=== PATIENT | male | born 1970 | race Caucasian/White ===

== ENCOUNTER 2022-01-05 15:24 | Emergency (ER) | payer OTHER, SELFPAY ==
[2022-01-05 15:36] VITALS: BP 156/79; PULSE 112; RESP 14; TEMP 36.9; O2SAT 99
[2022-01-05 16:10] VITALS: BP 143/84; PULSE 112; RESP 18; O2SAT 99
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
[2022-01-05] MEDS: HYDROcodone/acetaminophen (*CRX) 5-325 MG TABLET 1 TAB PO (16:31)
[2022-01-05 17:15] VITALS: BP 136/85; PULSE 90; RESP 18; O2SAT 99
== END 2022-01-05 17:17 | disposition home or self-care (01) ==
LOC: ANHED 17:02
PROVIDERS: Emergency Provider Nurse Practitioner Family
DX: M95.11 Cauliflower ear, right ear (principal)
CPT/HCPCS: 99283; A9270

== ENCOUNTER 2024-09-17 11:44 | Emergency (ER) | payer SELFPAY ==
[2024-09-17] VITALS (8 sets, daily range): BP systolic 129–182; BP diastolic 72–98; PULSE 90–105; RESP 14–20; TEMP 36.6; O2SAT 94–99
--- NOTE | ~2024-09-17 | CT_ITS ---
EXAMINATION: CTA chest abdomen pelvis DATE: 09/17/2024 16:29 INDICATION: Chest and abdominal pain TECHNIQUE: Computed tomographic angiography (CTA) of the chest, abdomen, and pelvis was performed wit hout and with 100 mL Omnipaque-350 intravenous contrast. Volume-rendered 3D-reconstructions of the ao rta and large arteries were constructed by the technologist on a separate workstation. Automated expo sure control and iterative reconstruction technique were employed. The dose-length product was 1274.7 3 mGy-cm. COMPARISON: None FINDINGS: Chest: Mild dependent atelectasis in bilateral lower lobes. No suspicious pulmonary nodules, pneumonia, pulm onary edema, pleural effusion or pneumothorax. Heart size is normal. No pericardial effusion. Small a mount of atherosclerotic coronary artery calcific lesion. Thoracic aorta is normal in caliber with no dissection. There is good contrast opacification of the pulmonary arteries demonstrating no pulmonar y embolism. No pathologically enlarged thoracic lymphadenopathy. Mild thoracic and moderate lower cer vical spondylosis. Abdomen and pelvis: Diffuse hepatic steatosis. 1.6 cm avidly enhancing subcapsular lesion in the anterior left hepatic lo be which statistically most likely to represent a hemangioma. There is a second lesion with avid zan pheral discontiguous puddling of contrast in the right hepatic lobe measuring 1.6 cm also most consis tent with a hemangioma. Cholecystectomy clips the gallbladder fossa. Spleen, bilateral adrenal glands and kidneys are normal. Small dystrophic calcific a cyst at the head and tail of the pancreas consis tent with sequela of chronic pancreatitis. Bladder is normal. There is moderate diverticulosis with s igmoid colon predominance and without adjacent from trace stranding to suggest diverticulitis. No bow el obstruction. The appendix is not visualized. No pericecal inflammatory change to suggest acute stuart endicitis. There are moderate-sized bilateral fat-containing inguinal hernias. Midline infraumbilical surgical scar with surgical clips. No free intraperitoneal gas or fluid. No pathologically enlarged abdominal or pelvic lymphadenopathy. There is small amount of nonhemodynamically significant calcifie d atherosclerosis of the normal caliber abdominal aorta and bilateral iliac arteries. Mild lumbar spo ndylosis with instrumented L4-L5 anterior spinal fusion. IMPRESSION: 1. No acute cardiopulmonary disease or acute intra-abdominal/pelvic process. 2. Diffuse hepatic steatosis with a couple avidly enhancing hepatic lesions most likely representing hemangiomas but would recommend further evaluation with multiphase pre and postcontrast MRI for more definitive determination. 3. Diverticulosis. 4. Moderate-sized bilateral fat-containing inguinal hernias. Reviewed, dictated and finalized at location B. IMPRESSION: 1. No acute cardiopulmonary disease or acute intra-abdominal/pelvic process. 2. Diffuse hepatic steatosis with a couple avidly enhancing hepatic lesions mos t likely representing hemangiomas but would recommend further evaluation with m ultiphase pre and postcontrast MRI for more definitive determination. 3. Diverticulosis. 4. Moderate-sized bilateral fat-containing inguinal hernias.
--- NOTE | ~2024-09-17 | XR_ITS ---
EXAMINATION: XR chest 2V DATE: 09/17/2024 13:25 INDICATION: Chest pain TECHNIQUE: PA and lateral views of the chest were obtained. COMPARISON: None FINDINGS: The lungs are clear with no focal airspace opacities, pulmonary edema, pleural effusion or pneumothor ax. The cardiomediastinal silhouette is normal. A few old healed lateral right rib fractures. IMPRESSION: 1. No acute cardiopulmonary disease. Reviewed, dictated and finalized at location B.
--- NOTE | 2024-09-17 11:46 | ECG_ITS ---
Test Date: 2024-09-17 11:49:21 Measurements Intervals [place] Rate: 100 P: 71 MN: 168 QRS: -7 QRSD: 102 T: 63 QT: 351 QTc: 455 Interpretive Statements SINUS TACHYCARDIA CONSIDER ANTERIOR INFARCT, AGE INDETERMINATE BORDERLINE T WAVE ABNORMALITY- HIGH LATERAL LEADS ABNORMAL ECG No previous ECG available for comparison Electronically Signed On 09-17-2024 11:59:15 CDT by Connor Valenzuela D.O.
[2024-09-17 12:02] LABS: Glucose Point of Care 294 mg/dl (65-105)
[2024-09-17 12:11] LABS: Basophils Absolute Auto 0.1 K/mm3 (0.0-0.1); Basophils Percent Auto 0.6 % (0.2-1.2); Eosinophils Absolute Auto 0.1 K/mm3 (0-0.3); Eosinophils Percent Auto 0.8 % (0-4.4); Hematocrit 47.6 % (42.0-52.0); Hemoglobin 16.6 g/dL (14.0-18.0); Immature Granulocyte Absolute 0.08 K/mm3 (0.00-0.031); Immature Granulocyte Percent A 0.4 % (0-0.5); Lymphocytes Absolute Auto 1.83 K/mm3 (0.9-3.2); Lymphocytes Percent Auto 9.9 % (18.3-44.2); Mean Corpuscular HGB Conc 34.9 g/dl (32-36); Mean Corpuscular Hemoglobin 29.8 pg (26-34); Mean Corpuscular Volume 85.5 fl (80-100); Monocytes Absolute Auto 1.1 K/mm3 (0.1-0.6); Monocytes Percent Auto 5.8 % (2.6-8.5); Neutrophils Absolute Auto 15.2 K/mm3 (1.3-6.7); Neutrophils Percent Auto 82.5 % (45.5-73.1); Platelet Count Result 268 k/mm3 (150-375); Red Blood Count 5.57 M/mm3 (4.6-6.20); Red Cell Distribution Width 12.6 % (11.5-14.5); White Blood Count 18.5 K/mm3 (4.5-10.0)
[2024-09-17 12:21] LABS: INR 0.9; Prothrombin Time 12.1 Seconds (11.1-14.7)
[2024-09-17 12:22] LABS: Partial Thromboplastin Time 29.4 Seconds (22.3-36.8)
--- NOTE | 2024-09-17 13:35 | ED.GENADULT ---
HPI - General Adult General Chief complaint: Chest Pain Stated complaint: elevated BS, chest pain Time Seen by Provider: 09/17/24 13:11 History of Present Illness HPI narrative: 54-year-old male presents to the emergency department for evaluation for 2 days of left-sided chest pain and elevated blood sugars since yesterday. Patient is an insulin-dependent diabetic that is not on insulin pump. Patient states his blood sugars have been typically running in the 160s range but yesterday they were 300-400. Patient is a smoker but denies any prior cardiac history. Patient did have a stress test approximately 1 year ago at [facility]. Patient has no stents. Patient is a smoker but has no reported history of COPD. Related Data Allergies Allergy/AdvReac Type Severity Reaction Status Date / Time amoxicillin Allergy Hives Verified 01/05/22 15:41 Penicillins Allergy Hives Verified 01/05/22 15:41 Review of Systems Review of Systems: All systems reviewed & are unremarkable except as noted in HPI and below Exam Narrative: APPEARANCE: Well appearing, no pain, no distress, well-nourished. HEAD: normocephalic, atraumatic. EYES: PERRLA/EOMI, conjunctivae clear. NOSE: Normal no drainage EARS:TMS clear with good light reflex. THROAT: Pharynx clear, no exudate. NECK: Supple. No adenopathy, no masses. RESPIRATORY: Airway patent, respirations nonlabored. Clear to auscultation bilaterally, no rales, rhonchi, wheezing. CARDIOVASCULAR: Regular rate and rhythm without murmurs rubs or gallops. ABDOMINAL: Soft, nontender, nondistended, normal bowel sounds MUSCULOSKELETAL: Moves all extremities. Strength/ROM intact, No edema, No calf tenderness. NEURO: Alert. Cranial nerves II through XII intact. Good gait. Good coordination SKIN: Warm, dry. Normal Color Course Vital Signs Vital signs: Vital Signs Temperature 97.9 F 09/17/24 11:50 Pulse Rate 100 09/17/24 11:50 Respiratory Rate 20 09/17/24 11:50 Blood Pressure 129/72 09/17/24 11:50 Pulse Oximetry 96 09/17/24 11:50 Oxygen Delivery Room Air 09/17/24 11:50 Temperature 97.9 F 09/17/24 11:50 Pulse Rate 105 H 09/17/24 19:41 Respiratory Rate 16 09/17/24 19:41 Blood Pressure 182/98 H 09/17/24 19:41 Pulse Oximetry 99 09/17/24 19:41 Oxygen Delivery Room Air 09/17/24 11:50 Medical Decision Making MDM Narrative Medical decision making narrative: 54-year-old male presents emergency department for evaluation for intermittent chest pain and high blood sugars. Patient is currently afebrile with a leukocytosis of 18.5. Hemoglobin of 16.6. INR of 0.9. ABG was with then normal limits. No significant abnormalities on the patient's CMP patient's repeat blood sugar was 114 after rehydration. No elevation of lipase. Patient had negative serial troponins. UA was positive for ketones but negative for infection. Patient was negative for influenza RSV and for COVID. CT chest abdomen pelvis was ordered due to the patient complaining of chest and abdominal pain. This showed no acute abnormalities. Patient's blood pressure was 160/86 at time of discharge but patient had not yet taken his evening metoprolol. This was given prior to discharge. Patient was updated results of the workup and plan for close follow-up with primary care physician. All questions concerns were addressed Differential Diagnosis Differential Diagnosis: DKA, dehydration, hyperglycemia, COVID, RSV, influenza, ACS, pulmonary embolism, aortic dissection, STEMI, NSTEMI Vital Signs Vital Signs: Vital Signs Temperature 97.9 F 09/17/24 11:50 Pulse Rate 100 09/17/24 11:50 Respiratory Rate 20 09/17/24 11:50 Blood Pressure 129/72 09/17/24 11:50 Pulse Oximetry 96 09/17/24 11:50 Oxygen Delivery Room Air 09/17/24 11:50 Temperature 97.9 F 09/17/24 11:50 Pulse Rate 105 H 09/17/24 19:41 Respiratory Rate 16 09/17/24 19:41 Blood Pressure 182/98 H 09/17/24 19:41 Pulse Oximetry 99 09/17/24 19:41 Oxygen Delivery Room Air 09/17/24 11:50 Lab Data Lab results reviewed: Yes I reviewed the patient's lab results. 09/17/24 11:59 09/17/24 15:43 Labs: Lab Results 09/17/24 09/17/24 09/17/24 Range/Units 11:55 11:59 13:32 WBC 18.5 H (4.5-10.0) K/mm3 RBC 5.57 (4.6-6.20) M/mm3 Hgb 16.6 (14.0-18.0) g/dL Hct 47.6 (42.0-52.0) % MCV 85.5 (80-100) fl MCH 29.8 (26-34) pg MCHC 34.9 (32-36) g/dl RDW 12.6 (11.5-14.5) % Plt Count 268 (150-375) k/mm3 MPV 11.0 H (7.4-10.4) fl Immature Gran % (Auto) 0.4 (0-0.5) % Neut % (Auto) 82.5 H (45.5-73.1) % Lymph % (Auto) 9.9 L (18.3-44.2) % [place] % (Auto) 5.8 (2.6-8.5) % Eos % (Auto) 0.8 (0-4.4) % Baso % (Auto) 0.6 (0.2-1.2) % Lymph # (Auto) 1.83 (0.9-3.2) K/mm3 [place] # (Auto) 1.1 H (0.1-0.6) K/mm3 Eos # (Auto) 0.1 (0-0.3) K/mm3 Baso # (Auto) 0.1 (0.0-0.1) K/mm3 Abs Immat Gran (auto) 0.08 H (0.00-0.031) K/mm3 Absolute Neuts (auto) 15.2 H (1.3-6.7) K/mm3 Absolute Nucleated RBC 0.000 (0.0-0.012) K/mm3 Nucleated RBC % 0.0 (0.0-0.2) % PT 12.1 (11.1-14.7) Seconds INR 0.9 APTT 29.4 (22.3-36.8) Seconds Methemoglobin 0.2 (0-1.5) %THb Sodium (137-145) mmol/L Potassium (3.4-5.0) mmol/L Chloride (98-107) mmol/L Carbon Dioxide (22-30) mmol/L Anion Gap (4-12) mmol/L BUN (9-20) mg/dL Creatinine (0.7-1.3) mg/dL Estim Creat Clear Calc ml/min Estimated GFR (59 - ) Glucose (65-110) mg/dL POC Capillary Glucose 294 H (65-105) mg/dl Calcium (8.4-10.2) mg/dL Total Bilirubin (0.2-1.3) mg/dL AST (17-59) U/L ALT (6-50) U/L Alkaline Phosphatase (38-126) U/L Troponin I (0.000-0.034) ng/mL Total Protein (6.3-8.2) g/dL Albumin (3.5-5.1) g/dL Lipase (23-300) U/L Urine Color (Yellow) Urine Appearance (Clear) Urine pH (5.0-9.0) Ur Specific [place] (1.001-1.035) Urine Protein (Negative) mg/dL Urine Glucose (UA) (Negative) mg/dL Urine Ketones (Negative) mg/dL Ur Blood (Man) (Negative) Urine Nitrate (Negative) Urine Bilirubin (Negative) Urine Urobilinogen (<2.0) mg/dL Add Ur Microanalysis Leukocyte Esterase Rfl (Negative) SHAUNNA/UL Urine RBC (0-2) /hpf Urine WBC (0-3) /hpf Ur Squamous Epith Cells (Few) /hpf Urine Bacteria /hpf Urine Casts Influenza A (RT-PCR) (Negative) Influenza B (RT-PCR) (Negative) RSV (RT-PCR) (Negative) SARS-CoV-2 RNA (RT-PCR) (Negative) 09/17/24 09/17/24 09/17/24 Range/Units 13:41 14:20 15:41 WBC (4.5-10.0) K/mm3 RBC (4.6-6.20) M/mm3 Hgb (14.0-18.0) g/dL Hct (42.0-52.0) % MCV (80-100) fl MCH (26-34) pg MCHC (32-36) g/dl RDW (11.5-14.5) % Plt Count (150-375) k/mm3 MPV (7.4-10.4) fl Immature Gran % (Auto) (0-0.5) % Neut % (Auto) (45.5-73.1) % Lymph % (Auto) (18.3-44.2) % [place] % (Auto) (2.6-8.5) % Eos % (Auto) (0-4.4) % Baso % (Auto) (0.2-1.2) % Lymph # (Auto) (0.9-3.2) K/mm3 [place] # (Auto) (0.1-0.6) K/mm3 Eos # (Auto) (0-0.3) K/mm3 Baso # (Auto) (0.0-0.1) K/mm3 Abs Immat Gran (auto) (0.00-0.031) K/mm3 Absolute Neuts (auto) (1.3-6.7) K/mm3 Absolute Nucleated RBC (0.0-0.012) K/mm3 Nucleated RBC % (0.0-0.2) % PT (11.1-14.7) Seconds INR APTT (22.3-36.8) Seconds Methemoglobin (0-1.5) %THb Sodium (137-145) mmol/L Potassium (3.4-5.0) mmol/L Chloride (98-107) mmol/L Carbon Dioxide (22-30) mmol/L Anion Gap (4-12) mmol/L BUN (9-20) mg/dL Creatinine (0.7-1.3) mg/dL Estim Creat Clear Calc ml/min Estimated GFR (59 - ) Glucose (65-110) mg/dL POC Capillary Glucose 190 H (65-105) mg/dl Calcium (8.4-10.2) mg/dL Total Bilirubin (0.2-1.3) mg/dL AST (17-59) U/L ALT (6-50) U/L Alkaline Phosphatase (38-126) U/L Troponin I (0.000-0.034) ng/mL Total Protein (6.3-8.2) g/dL Albumin (3.5-5.1) g/dL Lipase (23-300) U/L Urine Color Yellow (Yellow) Urine Appearance Clear (Clear) Urine pH 6.0 (5.0-9.0) Ur Specific [place] 1.041 H (1.001-1.035) Urine Protein 1+ H (Negative) mg/dL Urine Glucose (UA) 3+ H (Negative) mg/dL Urine Ketones 2+ H (Negative) mg/dL Ur Blood (Man) Negative (Negative) Urine Nitrate Negative (Negative) Urine Bilirubin Negative (Negative) Urine Urobilinogen 0.2 (<2.0) mg/dL Add Ur Microanalysis Reviewed Leukocyte Esterase Rfl Negative (Negative) SHAUNNA/UL Urine RBC 0-2 (0-2) /hpf Urine WBC 0-5 (0-3) /hpf Ur Squamous Epith Cells None seen (Few) /hpf Urine Bacteria None seen /hpf Urine Casts 0-2 Influenza A (RT-PCR) Negative (Negative) Influenza B (RT-PCR) Negative (Negative) RSV (RT-PCR) Negative (Negative) SARS-CoV-2 RNA (RT-PCR) Negative (Negative) 09/17/24 09/17/24 09/17/24 Range/Units 15:43 18:38 19:31 WBC (4.5-10.0) K/mm3 RBC (4.6-6.20) M/mm3 Hgb (14.0-18.0) g/dL Hct (42.0-52.0) % MCV (80-100) fl MCH (26-34) pg MCHC (32-36) g/dl RDW (11.5-14.5) % Plt Count (150-375) k/mm3 MPV (7.4-10.4) fl Immature Gran % (Auto) (0-0.5) % Neut % (Auto) (45.5-73.1) % Lymph % (Auto) (18.3-44.2) % [place] % (Auto) (2.6-8.5) % Eos % (Auto) (0-4.4) % Baso % (Auto) (0.2-1.2) % Lymph # (Auto) (0.9-3.2) K/mm3 [place] # (Auto) (0.1-0.6) K/mm3 Eos # (Auto) (0-0.3) K/mm3 Baso # (Auto) (0.0-0.1) K/mm3 Abs Immat Gran (auto) (0.00-0.031) K/mm3 Absolute Neuts (auto) (1.3-6.7) K/mm3 Absolute Nucleated RBC (0.0-0.012) K/mm3 Nucleated RBC % (0.0-0.2) % PT (11.1-14.7) Seconds INR APTT (22.3-36.8) Seconds Methemoglobin (0-1.5) %THb Sodium 134 L (137-145) mmol/L Potassium 4.1 (3.4-5.0) mmol/L Chloride 102 (98-107) mmol/L Carbon Dioxide 22 (22-30) mmol/L Anion Gap 10 (4-12) mmol/L BUN 14 (9-20) mg/dL Creatinine 0.70 (0.7-1.3) mg/dL Estim Creat Clear Calc 124 ml/min Estimated GFR > 60 (59 - ) Glucose 187 H (65-110) mg/dL POC Capillary Glucose 114 H (65-105) mg/dl Calcium 8.4 (8.4-10.2) mg/dL Total Bilirubin 0.8 (0.2-1.3) mg/dL AST 25 (17-59) U/L ALT 24 (6-50) U/L Alkaline Phosphatase 75 (38-126) U/L Troponin I 0.014 0.015 (0.000-0.034) ng/mL Total Protein 8.0 (6.3-8.2) g/dL Albumin 3.6 (3.5-5.1) g/dL Lipase 86 (23-300) U/L Urine Color (Yellow) Urine Appearance (Clear) Urine pH (5.0-9.0) Ur Specific [place] (1.001-1.035) Urine Protein (Negative) mg/dL Urine Glucose (UA) (Negative) mg/dL Urine Ketones (Negative) mg/dL Ur Blood (Man) (Negative) Urine Nitrate (Negative) Urine Bilirubin (Negative) Urine Urobilinogen (<2.0) mg/dL Add Ur Microanalysis Leukocyte Esterase Rfl (Negative) SHAUNNA/UL Urine RBC (0-2) /hpf Urine WBC (0-3) /hpf Ur Squamous Epith Cells (Few) /hpf Urine Bacteria /hpf Urine Casts Influenza A (RT-PCR) (Negative) Influenza B (RT-PCR) (Negative) RSV (RT-PCR) (Negative) SARS-CoV-2 RNA (RT-PCR) (Negative) ABG Data ABG results: 09/17/24 13:32 Puncture Site Right radial ABG pH 7.425 ABG pCO2 33.8 L ABG pO2 74.5 L ABG PO2/FiO2 Ratio 3.55 ABG HCO3 21.7 L ABG O2 Saturation 95.4 ABG O2 Content 21.1 ABG Base Excess -1.8 A-a Gradient 34.8 Oxyhemoglobin 92.5 Carboxyhemoglobin 3.4 H Reduced Hemoglobin 3.9 Total Hemoglobin 16.2 O2 Delivery Device Not Reportable O2 Liters/Min Not Reportable FiO2 21 Imaging Data Radiologist's impression: Impressions Chest X-Ray 09/17/24 13:31 IMPRESSION: 1. No acute cardiopulmonary disease. Chest/Abdomen/Pelvis CTA 09/17/24 16:39 IMPRESSION: 1. No acute cardiopulmonary disease or acute intra-abdominal/pelvic process. 2. Diffuse hepatic steatosis with a couple avidly enhancing hepatic lesions most likely representing hemangiomas but would recommend further evaluation with multiphase pre and postcontrast MRI for more definitive determination. 3. Diverticulosis. 4. Moderate-sized bilateral fat-containing inguinal hernias. Discharge Plan Discharge Clinical Impression: Chest pain, Acute hyperglycemia Patient Disposition: Home Condition: Stable Instructions: Antibiotic Form, Chest Pain (ED) Additional Instructions: Closely monitor your blood sugar and drink plenty of water. Follow a diabetic diet. Have close follow-up with a primary care physician and with cardiology. Worsening symptoms then please call or return to the emergency department. You will need additional outpatient cardiac testing, such as a stress test. Patient Language: Brazilian Prescriptions: No Action hydrocodone-acetaminophen 5-325 mg tablet 1 tablet PO Q6H PRN (Reason: pain) Qty: 14 0RF Follow-up/Referrals: Chiqui Stuart MD [Physician] - PHYSICIAN NOT ON STAFF,NONSTAFF [Non-Staff] - Quality HEART score for chest pain patients History: slightly suspicious ECG: normal Age: > 45 and < 65 years Risk factors: 1 or 2 risk factors Troponin: < or = to 1x normal limit Heart score: 2
--- OUTSIDE RECORDS SUMMARY | 2024-09-17 13:40 | XMS_ITS | Clinical Summary ---
Author Organization [facility] Address [address] [place] [address] Care Team Providers Care Multisensor Intelligence Officer Name Role Phone Zoran Menard MD Primary Care Provider Allergies Active Allergy Reactions Criticality Noted Date Comments Amoxicillin Itching Low 02/03/2021 Codeine Unknown,Other (See comments) Low 012 Penicillins Hives,Itching,Rash,O ther (See comments) Medium 03/10/2015 Medications atorvastatin (LIPITOR) 40 mg tablet Take 1 tablet (40 mg total) by mouth daily 1 Active mirtazapine (REMERON) 15 mg tablet Take 1 tablet (15 mg total) by mouth nightly 1 Active sertraline (ZOLOFT) 50 mg tablet Take 1 tablet (50 mg total) by mouth daily 1 Active Jardiance 25 mg tablet 1 Active sulfamethoxazole -trimethoprim (BACTRIM DS) 800-160 mg per tablet 1 Active nystatin cream 1 Active fenofibrate (FENOGLIDE) 40 mg tablet Take 1 tablet (40 mg total) by mouth daily 1 Active lisinopriL (PRINIVIL,ZESTRI L) 10 mg tablet Take 1 tablet (10 mg total) by mouth daily 2 Active metFORMIN XR (GLUCOPHAGE XR) 500 mg 24 hr tablet TAKE 2 TABLETS BY MOUTH TWICE A DAY FOR 90 DAYS 2 Active glimepiride (AMARYL) 2 mg tablet glimepiride 2 mg tablet Take 1 tablet(s) every day by oral route. Active pregabalin (LYRICA) 75 mg capsule Take 1 capsule (75 mg total) by mouth 2 (two) times a day 2 Active amLODIPine (NORVASC) 5 mg tabletIndication s:Essential hypertension TAKE 1 TABLET (5 MG TOTAL) BY MOUTH DAILY. 90 tablet 3 4 Active OneTouch Ultra Test strip USE TO TEST BLOOD SUGAR ONCE IN THE MORNING FASTING AND BEFORE BED 3 Active LANTUS 100 unit/mL (3 mL) pen for injection INJECT 30 UNITS EVERY DAY BY SUBCUTANEOUS ROUTE IN THE EVENING FOR 30 DAYS. Active nicotine (NICODERM CQ) 21 mg APPLY 1 PATCH EVERY DAY Active TRUEplus Pen Needle 31 gauge x 5/16 needle USE TO INJECT LANTUS DAILY 3 Active Alcohol Prep Pads pads, medicated 3 Active meloxicam (MOBIC) 15 mg tablet Take 1 tablet (15 mg total) by mouth daily with breakfast Take 1 daily with food 30 tablet 4 Active cyclobenzaprine (FLEXERIL) 10 mg tablet Take 1 tablet (10 mg total) by mouth nightly as needed for muscle spasms 20 tablet 4 Active metoprolol tartrate (LOPRESSOR) 50 mg immediate release tablet TAKE 1 TABLET BY MOUTH TWICE A DAY 60 tablet 1 4 Active Active Problems Problem Noted Date Diagnosed Date Contusion of multiple sites 06/07/2023 Diabetes mellitus 06/07/2023 Hypertensive disorder 06/07/2023 Essential hypertension 06/07/2023 Hernia of anterior abdominal wall 06/07/2023 Dyslipidemia 02/12/2022 Overview (02/12/2022): Added automatically from request for surgery [id number] Abnormal computed tomography angiography (CTA) 0 02/12/2022 Overview (02/12/2022): Added automatically from request for surgery [id number] High coronary artery calcium score 02/12/2022 Overview (02/12/2022): Added automatically from request for surgery [id number] Smoking 02/12/2022 Overview (02/12/2022): Added automatically from request for surgery [id number] Mixed hyperlipidemia 02/12/2022 Overview (02/12/2022): Added automatically from request for surgery [id number] Family history of CABG 02/12/2022 Overview (02/12/2022): Added automatically from request for surgery [id number] Hypertriglyceridemia 02/12/2022 Overview (02/12/2022): Added automatically from request for surgery [id number] Coronary artery disease of n ative artery of [place] heart with stable angina pectoris 02/12/2022 Overview (02/12/2022): Added automatically from request for surgery [id number] Dyspnea on exertion 02/12/2022 Overview (02/12/2022): Added automatically from request for surgery [id number] Anginal equivalent 02/12/2022 Overview (02/12/2022): Added automatically from request for surgery [id number] Hypertriglyceridemia 04/30/2021 Hemangioma of liver 03/29/2021 Overview (06/07/2023): MRI 03/27/21: Benign cavernous hemangiomas of liver x 2 1.3 x 0.9 cm 1.3 x 1.1 cm Polyp of colon 03/10/2021 Overview (06/07/2023): Benign pathology 03/10/21. Repeat recommended Feb 2024. Pancreatitis 11/29/2019 Ulcer of right great toe due to diabetes mellitu s 12/25/2017 Sepsis 12/24/2017 Anxiety 07/08/2016 Dorsalgia 11/14/2015 Right rotator cuff tear 08/20/2015 Cervicalgia 07/30/2015 Other chronic pain 07/30/2015 Complete tear of right rotator cuff 06/18/2015 Low back pain 06/08/2015 Closed fracture of lumbar vertebra 04/15/2015 Contusion of one lung 03/11/2015 Diverticulosis of large inte jose m without perforation or abscess without bleeding 03/11/2015 Hemangioma of intra-abdominal structures 015 Diabetic neuropathy 01/08/2015 Cervical disc disorder 03/09/2012 Depressive disorder 03/09/2012 Backache 03/09/2012 Surgical History Surgery Date Site/Laterality Comments LAPAROSCOPIC CHOLECYSTECTOMY BACK SURGERY L4-L5 Fusion APPENDECTOMY ANKLE SURGERY Left KNEE SURGERY Right x2 Medical History Medical History Date Comments Diabetes (HCC) Anxiety Depressive disorder Chronic pain Neuropathy Hypertension Family History Medical History Relation Name Comments Diabetes Father Heart disease Father Hypertension Father Diabetes Mother Hypertension Mother Thyroid cancer Mother Relation Name Status Comments Father Mother Alive Social History Tobacco Use Types Packs/Day Years Used Date Smoking Tobacco: Every Day Cigarettes 1 30.5 Started: 03/31/1994 Smokeless Tobacco: Former Quit: 02/09/2021 Tobacco Cessation:Ready to Q uit: Not Asked; Counseling Given: Not Answered AUDIT-C Answer Date Recorded Q1: How often do you have a drink containing alc ohol? Monthly or less 03/01/2022 Q2: How many drinks containi ng alcohol do you have on a typical day when you are drinking? 5 or 6 03/01/2022 Q3: How often do you have si x or more drinks on one occasion? Less than monthly 03/01/2022 Personal Safety Answer Date Recorded Getting School Help Needed Not on file 05/05 Sex and Gender Information Value Date Recorded Sex Assigned at Not on file Legal Sex Male 11:29 PM HADOOP ANALYST Gender Identity Not on file Sexual Orientation Not on file Obstetrics History Last Filed Vital Signs Vital Sign Reading Time Taken Comments Blood Pressure 130/80 05/10/2022 10:50 AM HADOOP ANALYST Pulse 95 05/10/2022 10:50 AM HADOOP ANALYST Temperature 36.8 C (98.2 F) 03/01/2022 5:00 PM CDT Respiratory Rate 18 03/01/2022 6:30 PM CDT Oxygen Saturation 97% 05/10/2022 10:50 AM HADOOP ANALYST Inhaled Oxygen Concentration - - Weight 106.6 kg (235 lb) 06/15/2023 8:08 AM HADOOP ANALYST Height 188 cm (6' 2 ) 06/15/2023 8:08 AM HADOOP ANALYST Body Mass Index 30.17 06/15/2023 8:08 AM HADOOP ANALYST Plan of Treatment Health Maintenance Due Date Last Done Comments Albumin Creatinine Ratio, Urine 1972 Colon Cancer Screening-Colonoscopy 1972 Depression Screening 1972 Hepatitis C Screening 1972 Prostate Cancer Screening-PSA 1972 Dilated Eye Exam 1972 Foot Exam 1972 Hepatitis B Screening 1990 Regular Well Visit/Exam 18-64 1990 Pneumococcal vaccine <65 (2 of 2 - PCV) 08/26/2016 0 08/27/2015 Hemoglobin A1C 06/28/2018 12/26/2017 Lipid Panel 12/01/2020 12/02/2019 Zoster Vaccine (1 of 2) 2022 eGFR 03/01/2023 03/01/2022, 02/03/2021 Influenza Vaccine (Season Ended) 2025 02/15/20 23 DTaP/Tdap/Td Vaccine (2 - Td or Tdap) 12/29/203112/2021 Procedures Procedure Name Priority Date/Time Associated Diagnosis Comments EGFR STAT 03/01/2022 11:32 AM CDT from Last 3 Months or Most Recently Relevant to Health Maintenance Results * eGFR (03/01/2022 11:32 AM CDT) eGFR 113 mL/min/1. 73 m2 CHATO NAVARRETE Comment: Interpretive Data Reference Interval Normal >/= 90 mL/min/1.73m2 Mildly decreased* 60 - 89 mL/min/1.73m2 Mildly to moderately decreased 45 - 59 mL/min/1.73m2 Moderately to severely decreased 30 - 44 mL/min/1.73m2 Severely decreased 15 - 29 mL/min/1.73m2 Kidney Failure < 15 mL/min/1.73m2 *Relative to young adult level Estimated glomerular filtration rate is determined by the 2020 CKD-EPI equation recommended by the National Kidney Foundation (A Unifying Approach to GFR Estimation: Recommendations of the NKF-ASK Task Force on Reassessing the Inclusion of Race in Diagnosing Kidney Disease, JASN 2020). The CKD-EPI equation should not be used for patients with unstable renal function and has not been validated in children and those over 70. Current interpretive data was last reviewed 2021. Blood 03/01/2022 11:3 2 AM CDT 03/01/2022 11:35 AM CDT Mahi Aviles MD LAB BLOOD ORDERABLES F inal Result [facility] [address] [facility] Department [place] [address] from Last 3 Months or Most Recently Relevant to Health Maintenance [place] Care Teams Multisensor Intelligence Officer Relationship Specialty Start Date End Date Zoran Menard MD PCP - General Family Medicine 05/10/23
--- OUTSIDE RECORDS SUMMARY | 2024-09-17 13:40 | XMS_ITS | Continuity of Care Document ---
Author Organization [facility] Address [address] [place] [address] Phone Care Team Providers Care Kier Tender Name Role Phone Richard Gracia MD Unavailable Unavailabl e Allergies, Adverse Reactions, Alerts Substance Reaction Status Criticality amoxicillin Active No Information Penicillins Active No Information Medications Medication Instructions Dosage Effective Dates (start - stop) Status Comments Celebrex 200 mg capsule take 1 capsule by oral route every day as needed 200 MG - Active ESCITALOPRAM OXALATE (unknown strength) Not Available - Active GABAPENTIN (unknown strength) Not Available - Active GLIPIZIDE (unknown strength) Not Available - Active HYDROCODONE-ACETAMIN OPHEN (unknown strength) Not Available - Active LISINOPRIL (unknown strength) Not Available - Active METFORMIN HCL (unknown strength) Not Available - Active MIRTAZAPINE (unknown strength) Not Available - Active SIMVASTATIN (unknown strength) Not Available - Active Procedures Procedure Date OFFICE/OUTPATIENT VISIT EST OFFICE/OUTPATIENT VISIT EST OFFICE/OUTPATIENT VISIT EST OFFICE/OUTPATIENT VISIT EST OFFICE/OUTPATIENT VISIT EST RADEX SPI LUMBOSAC 2/3 VIEWS X-RAY EXAM HIP UNI W PELVIS 1 VIEW OFFICE CONSULTATION Advance Directives Directive Yes / No Effective Date File Name No Information Encounters Encounter Description Practice Location Reason(s) For Visit Diagnoses Date Provider Providers Copied on Encounter [facility], [address], [place], [address], [place] tel:[phone] [facility] No Information Jul-0 8-201 7 Julius Ramos. [address] [place], [place], [id number] . tel: [phone] [facility], [address] [address], [place], [address], [place] tel:[phone] [facility] No Information 6-201 7 [address] [place]. [address], [place], [place], [id number] . tel: [phone] OFFICE/OUTPAT IENT VISIT EST [facility], [address] [address], [place], [address], [place] tel:[phone] [facility] Primary osteoarthritis of right hip Sep-2 9-201 6 [place] [place]. [address] , [place], [place], [id number] . tel: [phone] OFFICE/OUTPAT IENT VISIT EST [facility], [address], [address], [place] tel:[phone] [facility] Primary osteoarthritis of right hip Sep-0 2-201 6 [place]. [address] , [place], [place], [id number] . tel: [phone] OFFICE/OUTPAT IENT VISIT EST [facility], [address] [address], [place], [address], [place] tel:[phone] [facility] Primary osteoarthritis of right hip Aug-0 5-201 6 [place]. [address] , [place], [place], [id number] . tel: [phone] OFFICE/OUTPAT IENT VISIT EST [facility], [address] [address], [place], [address], [place] tel:[phone] [facility] The injection helped for three days (chief complaint) Body mass index (BMI) 31.0-31.9, adultPersonal history of nicotine dependencePrimar y osteoarthritis of right hip [address]. [address] , [place], [place], [id number] . tel: [phone] OFFICE/OUTPAT IENT VISIT EST [facility], [address] [facility] [address] [facility], [place], [address], [place] tel:[phone] [facility] Right hip pain (chief complaint) Primary osteoarthritis of right hip 6 Meliton Millan. [address] [facility] [address] [place], [place], [id number] . tel: [phone] Referring Provider: Levi Lopez, [address] [facility], [place], [address]. tel:[phone] OFFICE CONSULTATION [facility], [address], [place], [address], [place] tel:[phone] [facility] My back and right leg hurt alot (chief complaint) Body mass index (BMI) 31.0-31.9, adultPersonal history of nicotine dependenceLow back painPrimary osteoarthritis of right hip 6 John Sims. [address] [place], [place], [id number] . tel: [phone] Family History Family Member Type Diagnosis Age At Onset Mother Problem (finding) Maternal history of regina betes mellitus Father Problem (finding) Maternal history of regina betes mellitus Mother Problem (finding) hypertension Father Problem (finding) hypertension Payers Payer name Insurance type Covered republican ID Authoriza tion(s) No Information Social History Type Description Quantity Date Captured Comments Alcohol Use Details Unknown Caffeine Use Details Unknown Tobacco Use Status Smoking Status No Information Sex Male Chief Complaint And Reason For Visit No Information Reason For Referral Reason For Referral No Information Plan Of Treatment Date Type Action Status Goal Tobacco cessation counseling completed Goal Tobacco cessation counseling completed Referral Ordered: RADEX HIP ARTHG RS&I RT hip ordered Referral Ordered: RADEX SPI LUMBOSAC 2/3 VIEWS ordered Referral Ordered: RADEX PELVIS 1/2 VIEWS RT ordered Referral Ordered: X-RAY EXAM HIP UNI W PELVIS 1 VIEW RT ordered Referral Ordered: INJECTION RT hip Appointment date/timeframe: 11/26/2015 ordered History Of Present Illness Encounter Date Complaint History Of Prese nt Illness The injection helped for three d ays Right hip pain My back and right leg hurt alot Functional Status Date Functional Assessmen t No Information Instructions Date Instruction Additional Infor kayla Home exercise program. Related t o Primary osteoarthritis of right hip Home exercise program. Related t o Primary osteoarthritis of right hip Home exercise program. Related t o Primary osteoarthritis of right hip In terms of work, I will place him on light duty work restrictions- No bending, pulling, pushing, stooping, no lifting heavier than 10 pounds, no overhead lifting. Related to Primary osteoarthritis of right hip Dietary needs education Related to Body mass index (BMI) 31.0-31.9, adult Dietary needs education Related to Body mass index (BMI) 31.0-31.9, adult Assessments Type Assessment Date No Information Patient Care Teams Name Effective Dates (start - stop) Status Members No Information
--- OUTSIDE RECORDS SUMMARY | 2024-09-17 13:40 | XMS_ITS | Clinical Summary ---
Author Organization [facility] Address [address] [place] [address] Care Team Providers Care Fabric Worker Foreman Name Role Phone Sammi Lake MD Primary Care Provider [phone] Source Comments [facility],non-owned Affiliates and Associated Physician Practices is amultiple site organization consisting of ambulatory clinics and hospital sitesin [place], [place], [place] and [place]. This disclosure is being madepursuant to the Care Everywhere program and may not contain all information available regarding this patient. Last updated 18.[facility] [employer] Allergies Active Allergy Reactions Criticality Noted Date Comments Amoxicillin Rash Medium 03/10/2015 Penicillins Rash Medium 03/10/2015 Medications * Be aware that medications may not be up to date on this document. Alwaysverify current medications with the patient. meloxicam (MOBIC) 15 MG tablet 1 01/23/2016 Active glipiZIDE (GLUCOTROL) 5 MG tablet 1 11/03/2015 Active sertraline (ZOLOFT) 50 MG tablet Take 50 mg by mouth DAILY. 0 11/13/2015 Active mirtazapine (REMERON) 15 MG tablet Take 15 mg by mouth at bedtime Active lisinopril (PRINIVIL; ZESTRIL) 40 MG tablet Take 40 mg by mouth once daily Active metFORMIN (GLUCOPHAGE) 850 MG tablet Take 850 mg by mouth 3 times daily with meals Active alogliptin (NESINA) 25 MG tablet Take 25 mg by mouth once daily Active chlorthalidone (HYGROTON) 25 MG tablet Take 25 mg by mouth once daily Active amLODIPine (NORVASC) 10 MG tablet Take 1 tablet by mouth once daily 30 tablet 1 12/30/2017 Active pantoprazole EC (PROTONIX) 40 MG tablet Take 1 tablet by mouth 2 times daily 60 tablet 1 12/29/2017 Active HYDROcodone-aries taminophen (Medina) 5-325 MG tablet Take 1 (one) tablet by mouth every 6 hours as needed for Pain 12 tablet 12/28/2021 Active naproxen (Naprosyn) 500 MG tablet Take 1 (one) tablet by mouth 2 times daily 30 tablet 12/28/2021 Active Active Problems Problem Noted Date Diagnosed Date Ulcer of right great toe due to diabetes mellitu s 12/25/2017 Sepsis 12/24/2017 Dorsalgia 11/14/2015 Right rotator cuff tear 08/20/2015 Cervicalgia 07/30/2015 Other chronic pain 07/30/2015 Complete tear of right rotator cuff 06/18/2015 Low back pain 06/08/2015 Fracture of lumbar vertebra with routine healing 04/22/2015 Closed fracture of lumbar vertebra 04/15/2015 Diverticulosis of large inte jose m without perforation or abscess without bleeding 03/11/2015 Hemangioma of intra-abdominal structures 015 Contusion of one lung 03/11/2015 Immunizations Immunization Administration Dates Next Due TDAP (7yrs+) 12/28/2021 Family History Medical History Relation Name Comments None Known Brother Status: Alive Diabetes Father Status: d Hypertension Father Hypertension Mother Status: Alive None Known Sister 1 Status: Alive None Known Sister 2 Status: Alive Relation Name Status Comments Brother Father Mother Sister 1 Sister 2 Social History Tobacco Use Types Packs/Day Years Used Date Smoking Tobacco: Every Day Cigarettes Smokeless Tobacco: Never Tobacco Cessation:Ready to Q uit: No; Counseling Given: No Alcohol Use Standard Drinks/Week Comments No 0 (1 standard drink = 0.6 oz pur e alcohol) Sex and Gender Information Value Date Recorded Sex Assigned at Not on file Legal Sex Male 5:49 PM ATV MECHANIC Gender Identity Not on file Sexual Orientation Not on file Last Filed Vital Signs Vital Sign Reading Time Taken Comments Blood Pressure 143/90 01/05/2022 2:01 PM CDT Pulse 114 01/05/2022 2:01 PM CDT Temperature 36.4 C (97.6 F) 01/05/2022 2:01 PM CDT Respiratory Rate 18 12/28/2021 6:45 AM CDT Oxygen Saturation 100% 01/05/2022 2:01 PM CDT Inhaled Oxygen Concentration - - Weight 108.4 kg (239 lb) 01/05/2022 2:01 PM CDT Height 188 cm (6' 2 ) 01/05/2022 2:01 PM CDT Body Mass Index 30.69 01/05/2022 2:01 PM CDT Plan of Treatment Health Maintenance Due Date Last Done Comments COLOGUARD (AGES 45-75) - COLON CA SCREENING 1972 COLON MONITORING 1972 COLONOSCOPY - COLON CA SCREENING 1972 CT COLONOGRAPHY - COLON CA SCREENING 1972 Colorectal Cancer Screening 1972 FIT - COLON CA SCREENING 1972 FLEX SIG - COLON CA SCREENING 1972 HIV SCREENING 1987 HEPATITIS C SCREENING 04/24/1990 HEPATITIS B VACCINE (1 of 3 - 19+ 3-dose series) 1991 PNEUMOCOCCAL VACCINE 50+ (1 of 2 - PCV) 1991 DIABETES-STATIN 2012 DIABETES RETINOPATHY SCREENING 01/05/2022 DIABETES-FOOT EXAM WITH MONOFILAMENT 01/05/2022 DIABETES-HGB A1C 01/05/2022 12/26/2017 ZOSTER VACCINE (1 of 2) 2022 DIABETES-SERUM CREATININE 11/04/20232022, 11/03/2022, 12/28/2021, Additional history exists COVID-19 VACCINE (1 - season) 2024 DEPRESSION SCREENING 05/23/2024 DIABETES - URINE PROTEIN SCREENING 05/23/2024 INFLUENZA VACCINE (Season Ended) 2025 02/14/2023 DTAP/TDAP/TD VACCINES (2 - Td or Tdap) 12/29/2031 12/28/2021 HIB VACCINE Aged Out No longer eligi ble based on patient's age to complete this topic HPV VACCINE Aged Out No longer eligi ble based on patient's age to complete this topic MENINGOCOCCAL (Group B) VACCINE SHARED DECISION-MAKING Aged Out No longer eligible based on patient's age to complete this topic MENINGOCOCCAL GROUPS A/C/Y/W VACCINE Aged Out No longer eligible based on patient's age to complete this topic Procedures Procedure Name Priority Date/Time Associated Diagnosis Comments BASIC METABOLIC PANEL (CALCIUM TOTAL) STAT 12/28/2021 12:39 AM CDT HEMOGLOBIN A1C Routine 12/26/2017 3:18 AM CDT from Last 3 Months or Most Recently Relevant to Health Maintenance Results * (ABNORMAL) BASIC METABOLIC PANEL (CALCIUM TOTAL) (12/28/2021 12:39 AM CDT) BUN 16 7 - 26 mg/dL 12/28/2021 1:17 AM [facility] Creatinine 1.01 0.71 - 1.16 mg/dL 12/28/2021 1:17 AM [facility] Sodium 137 136 - 145 mmol/L 12/28/2021 1:17 AM [facility] Potassium 3.6 3.5 - 4.5 mmol/L 12/28/2021 1:17 AM [facility] Chloride 105 98 - 107 mmol/L 12/28/2021 1:17 AM [facility] CO2 17(L) 22 - 29 mmol/L 12/28/2021 1:17 AM [facility] Glucose 169(H) 70 - 115 mg/dL 12/28/2021 1:17 AM [facility] Calcium 9.0 8.4 - 10.2 mg/dL 12/28/2021 1:17 AM [facility] Anion Gap 19(H) 8 - 18 12/28/2021 1:17 AM [facility] BUN/Creatinine Ratio 16 7 - 23 12/28/2021 1:17 AM [facility] Osmolality Calculated 289 270 - 300 mOsm/kg 12/28/2021 1:17 AM [facility] eGFR by CKD-EPI >90 >=90 mL/min/1.7 3 m2 12/28/2021 1:17 AM [facility] Blood BLOOD SPECIMEN / Unknown Venipuncture / Unknown 12/28/2021 12:39 AM CDT 12/28/2021 12:51 AM CDT us Angelito Maddox MD LAB - CHEMISTRY ORDERABLES Final Result [facility] [address] [place] [address], [facility] [phone] * (ABNORMAL) HEMOGLOBIN A1C (12/26/2017 3:18 AM CDT) Hemoglobin A1c 7.4(H) 4.2 - 6.3 % 12/26/2017 5:16 AM CDT [facility] Estimated Average Glucose 166 mg/dL 12/26/2017 5:16 AM CDT [facility] Whole Blood BLOOD SPECIMEN WITH EDTA / Unknown Lab Venipuncture / Unknown 12/26/2017 3:18 AM CDT 12/26/2017 4:38 AM CDT Aguilar Bernardo APRN-LACE SEWER LAB - CHEMISTRY ORDERABLES Final Result [facility] [address] [place] [address] from Last 3 Months or Most Recently Relevant to Health Maintenance Insurance MEDICAID [employer] [place] MED[place]ID A[employer] [facility] [place] [employer] LIABILITY * Guarantor: E-SCREEN,SOIL Account Type Relation to Patient Date of Phone Billing Address Company Employer [employer] [address] Advance Directives * Full Code (Latest Code Status on File) Date Activated Date Inactivated Comments 12/25/2017 7:52 PM 12/29/2017 3:21 PM Care Teams Fabric Worker Foreman Relationship Specialty Start Date End Date Sammi Lake MD [address] [phone] PCP - General Family Medicine 12/28/21
--- OUTSIDE RECORDS SUMMARY | 2024-09-17 13:40 | XMS_ITS | Referral Summary ---
Author Organization [facility] Address [address] [place] [address] Care Team Providers Care Die Attaching Machine Tender Name Role Phone Zoran Menard MD Primary [...] (02/12/2022): Added automatically from request for surgery [id number] Abnormal computed tomography angiography (CTA) 0 02/12/2022 Overview (02/12/2022): Added automatically from request for surgery [id number] High coronary artery calcium score 02/12/2022 Overview (02/12/2022): Added automatically from request for surgery [id number] Smoking 02/12/2022 Overview (02/12/2022): Added automatically from request for surgery [id number] Mixed hyperlipidemia 02/12/2022 Overview (02/12/2022): Added automatically from request for surgery [id number] Family history of CABG 02/12/2022 Overview (02/12/2022): Added automatically from request for surgery [id number] Hypertriglyceridemia 02/12/2022 Overview (02/12/2022): Added automatically from request for surgery [id number] Coronary artery disease of n ative artery of [place] heart with stable angina pectoris 02/12/2022 Overview (02/12/2022): Added automatically from request for surgery [id number] Dyspnea on exertion 02/12/2022 Overview (02/12/2022): Added automatically from request for surgery [id number] Anginal equivalent 02/12/2022 Overview (02/12/2022): Added automatically from request for surgery [id number] Hypertriglyceridemia 04/30/2021 Hemangioma of liver 03/29/2021 Overview [...] disorder 03/09/2012 Depressive disorder 03/09/2012 Backache 03/09/2012 Social History Tobacco Use Types Packs/Day Years [...] on file Legal Sex Male 11:29 PM CREDIT UNION TELLER Gender Identity Not on file Sexual Orientation Not on file Last Filed Vital Signs Vital Sign Reading Time Taken Comments Blood Pressure 130/80 05/10/2022 10:50 AM CREDIT UNION TELLER Pulse 95 05/10/2022 10:50 AM CREDIT UNION TELLER Temperature 36.8 C (98.2 F) 03/01/2022 5:00 PM CDT Respiratory Rate 18 03/01/2022 6:30 PM CDT Oxygen Saturation 97% 05/10/2022 10:50 AM CREDIT UNION TELLER Inhaled Oxygen Concentration - - Weight 106.6 kg (235 lb) 06/15/2023 8:08 AM CREDIT UNION TELLER Height 188 cm (6' 2 ) 06/15/2023 8:08 AM CREDIT UNION TELLER Body Mass Index 30.17 06/15/2023 8:08 AM CREDIT UNION TELLER Plan of Treatment Not on file Procedures Procedure Name Priority Date/Time Associated Diagnosis [...] MD LAB BLOOD ORDERABLES F inal Result [facility] [address] [facility] Department [place] [address] from Last 3 Months or Most Recently Relevant to Health Maintenance Insurance A[facility]NA [facility] [place] Care Teams Die Attaching Machine Tender Relationship Specialty Start Date End Date Zoran Menard MD PCP - General Family Medicine 05/10/23
[2024-09-17 13:42] LABS: Alveolar/Arterial O2 Gradient 34.8 mmHg; Base Excess ABG -1.8 mEq/l (+/-2.0); Carboxyhemoglobin 3.4 % THb (0-2.0); Fractional Inspired Oxygen 21 %; HCO3 ABG 21.7 mEq/l (22.0-26.0); Methemoglobin ABG 0.2 %THb (0-1.5); Oxygen Content ABG 21.1 %vol (16.0-22.0); Oxygen Saturation ABG 95.4 % (95.0-100.0); Oxyhemoglobin 92.5 % THb (90.0-100.0); PCO2 ABG 33.8 mmHg (35.0-45.0); PO2 ABG 74.5 mmHg (80.0-100.0); PO2 FiO2 Ratio Arterial Blood 3.55 %; Reduced Hemoglobin 3.9 %THb (0-5.0); Total Hemoglobin 16.2 g/dL (12.0-18.0); pH ABG 7.425 (7.350-7.450)
[2024-09-17 13:43] LABS: Modified Allen's Test Pass; Site Drawn RIGHT RADIAL
[2024-09-17] MEDS: ALBUTEROL SULFATE NEB 2.5 MG/3 ML INH INHALATION (13:46)
[2024-09-17] MEDS: ASPIRIN 81 MG CHEWABLE TABLET 324 MG PO (14:21)
[2024-09-17] MEDS: ONDANSETRON INJ 4 MG/2 ML VIAL IV PUSH (14:21)
[2024-09-17] MEDS: LACTATED RINGERS 2,000 ML 999 ML IV CONT (14:21)
[2024-09-17 14:37] LABS: Influenza A QL RT-PCR Negative (Negative); Influenza B QL RT-PCR Negative (Negative); RSV RNA, RT-PCR Negative (Negative); SARS-CoV-2 RNA PCR Negative (Negative)
[2024-09-17 14:42] LABS: Add Urine Microscopic? YES; Appearance Urine Clear (Clear); Bacteria Urine None Seen /hpf; Bilirubin Urine Negative (Negative); Blood Urine Negative (Negative); Color Urine Yellow (Yellow); Glucose Urine UA 3+ mg/dL (Negative); Ketones Urine 2+ mg/dL (Negative); Leukocyte Esterase Ur Negative LEU/UL (Negative); Need Manual Microscopic Reviewed; Nitrate Urine Negative (Negative); Non Pathogenic Casts 0-2; Protein Urine 1+ mg/dL (Negative); RBC Urine 0-2 /hpf (0-2); Specific Grav Ur 1.041 (1.001-1.035); Squamous Epithelial Cell Urine None Seen /hpf (Few); Urobilinogen Urine 0.2 mg/dL (<2.0); WBC Urine 0-5 /hpf (0-3)
[2024-09-17 15:46] LABS: Glucose Point of Care 190 mg/dl (65-105)
--- OUTSIDE RECORDS SUMMARY | 2024-09-17 15:59 | XMS_ITS | Encounter Summary ---
Author Organization [facility] Address [address] [place] [address] Care Team Providers Care Bending Shed Worker Name Role Phone None, Provider Primary Care Provider Sammi Porter MD Primary Care Provider [phone] None, Provider Primary Care Provider Laverne White NP Primary Care Provider [phone] Encounter Details Date Type Department Care Team (Late st Contact Info) Description 12/04/2019 Prep for Procedure [facility] [address] [place] [address] [place] [address] [facility] [address] [place] [address] Social History Tobacco Use Types Packs/Day Years Used Date Smoking Tobacco: Every Day Smokeless Tobacco: Never Alcohol Use Standard Drinks/Week Comments Yes 0 (1 standard drink = 0.6 oz pur e alcohol) Overall Financial Resource Strain (CARDIA) Answe r Date Recorded Difficulty of Paying Living Expenses Not hard at all 11/29/2019 [facility] [place] of Occupat ional Health - Occupational Stress Questionnaire Answer Date Recorded Feeling of Stress Only a little 11/29/2019 Hunger Vital Sign Answer Date Recorded Worried About Running Out of Food in the Last Ye ar Never true 11/29/2019 Ran Out of Food in the Last Year Never true 11/29/2019 PRAPARE - Transportation Answer Date Re corded Lack of Transportation (Medical) No 11/29/2019 Lack of Transportation (Non-Medical) No 11/29/2019 Sex and Gender Information Value Date Recorded Sex Assigned at Male 11/29/2019 10:57 PM CDT Legal Sex Male 5:29 PM CDT Gender Identity Male 11/29/2019 10:57 PM CDT Sexual Orientation Straight 11/29/2019 10 :57 PM CDT COVID-19 Exposure Response Date Recorded In the last month, have you been in contact with someone who was confirmed or suspected to have Coronavirus / COVID-19? No / Unsure 12/06/2019 7:35 AM CDT documented as of this encounter Plan of Treatment Not on file documented as of this encounter Goals Goal Patient Goal Type Associated Problems Recent Progress Patient-Stated? Author Return to independent living Lifestyle No Noemi Soto, PET WALKER documented as of this encounter Visit Diagnoses Diagnosis Preop testing- Primary Preoperative examination, unspecified documented in this encounter Additional Health Concerns Infection Onset Date Last Indicated Resolved Time COVID-19 Rule Out 12/04/2019 12/04/2019 12/06/2019 6:09 PM CDT COVID-19 Rule Out 05/26/2020 05/26/2020 05/28/2020 6:46 PM ASPHALT PAVING SUPERINTENDENT COVID-19 Rule Out 02/14/2021 02/14/2021 06/11/2021 2:35 PM ASPHALT PAVING SUPERINTENDENT COVID-19 Rule Out 02/15/2021 02/15/2021 02/15/2021 11:57 AM CDT documented as of this encounter Care Teams Bending Shed Worker Relationship Specialty Start Date End Date None, ProviderMD PCP - General 05/06/18 02/09/21 Sammi Lake MD PCP - General FAMILY PRACTICE 02/10/21 11/02/22 None, MD Osmani PCP - General UNKNOWN PHYSICIAN SPECIALTY 11/03/22 [address] [place] [address] [place] [address] PCP - General Nurse Practitioner Family 03/01/24 documented as of this encounter
--- OUTSIDE RECORDS SUMMARY | 2024-09-17 15:59 | XMS_ITS | Clinical Summary ---
Author Organization [facility] Address [address] [place] [address] Care Team Providers Care Shake Out Worker Name Role Phone Zoran Menard MD Primary [...] (02/12/2022): Added automatically from request for surgery [id number] Abnormal computed tomography angiography (CTA) 0 02/12/2022 Overview (02/12/2022): Added automatically from request for surgery [id number] High coronary artery calcium score 02/12/2022 Overview (02/12/2022): Added automatically from request for surgery [id number] Smoking 02/12/2022 Overview (02/12/2022): Added automatically from request for surgery [id number] Mixed hyperlipidemia 02/12/2022 Overview (02/12/2022): Added automatically from request for surgery [id number] Family history of CABG 02/12/2022 Overview (02/12/2022): Added automatically from request for surgery [id number] Hypertriglyceridemia 02/12/2022 Overview (02/12/2022): Added automatically from request for surgery [id number] Coronary artery disease of n ative artery of [place] heart with stable angina pectoris 02/12/2022 Overview (02/12/2022): Added automatically from request for surgery [id number] Dyspnea on exertion 02/12/2022 Overview (02/12/2022): Added automatically from request for surgery [id number] Anginal equivalent 02/12/2022 Overview (02/12/2022): Added automatically from request for surgery [id number] Hypertriglyceridemia 04/30/2021 Hemangioma of liver 03/29/2021 Overview [...] on file Legal Sex Male 11:29 PM MAIL CLERK Gender Identity Not on file Sexual Orientation Not on file Obstetrics History Last Filed Vital Signs Vital Sign Reading Time Taken Comments Blood Pressure 130/80 05/10/2022 10:50 AM MAIL CLERK Pulse 95 05/10/2022 10:50 AM MAIL CLERK Temperature 36.8 C (98.2 F) 03/01/2022 5:00 PM CDT Respiratory Rate 18 03/01/2022 6:30 PM CDT Oxygen Saturation 97% 05/10/2022 10:50 AM MAIL CLERK Inhaled Oxygen Concentration - - Weight 106.6 kg (235 lb) 06/15/2023 8:08 AM MAIL CLERK Height 188 cm (6' 2 ) 06/15/2023 8:08 AM MAIL CLERK Body Mass Index 30.17 06/15/2023 8:08 AM MAIL CLERK Plan of Treatment Health Maintenance Due Date [...] ORDERABLES F inal Result [facility] [address] [facility] Department [place] [address] from Last 3 Months or Most Recently Relevant to Health Maintenance [place] Care Teams Shake Out Worker Relationship Specialty Start Date End Date Zoran Menard MD PCP - General Family Medicine 05/10/23
--- OUTSIDE RECORDS SUMMARY | 2024-09-17 15:59 | XMS_ITS | Referral Summary ---
Author Organization [facility] Address [address] [place] [address] Care Team Providers Care Radio Director Name Role Phone Zoran Menard MD Primary [...] (02/12/2022): Added automatically from request for surgery [id number] Abnormal computed tomography angiography (CTA) 0 02/12/2022 Overview (02/12/2022): Added automatically from request for surgery [id number] High coronary artery calcium score 02/12/2022 Overview (02/12/2022): Added automatically from request for surgery [id number] Smoking 02/12/2022 Overview (02/12/2022): Added automatically from request for surgery [id number] Mixed hyperlipidemia 02/12/2022 Overview (02/12/2022): Added automatically from request for surgery [id number] Family history of CABG 02/12/2022 Overview (02/12/2022): Added automatically from request for surgery [id number] Hypertriglyceridemia 02/12/2022 Overview (02/12/2022): Added automatically from request for surgery [id number] Coronary artery disease of n ative artery of [place] heart with stable angina pectoris 02/12/2022 Overview (02/12/2022): Added automatically from request for surgery [id number] Dyspnea on exertion 02/12/2022 Overview (02/12/2022): Added automatically from request for surgery [id number] Anginal equivalent 02/12/2022 Overview (02/12/2022): Added automatically from request for surgery [id number] Hypertriglyceridemia 04/30/2021 Hemangioma of liver 03/29/2021 Overview [...] on file Legal Sex Male 11:29 PM PERCH MENDER Gender Identity Not on file Sexual Orientation Not on file Last Filed Vital Signs Vital Sign Reading Time Taken Comments Blood Pressure 130/80 05/10/2022 10:50 AM PERCH MENDER Pulse 95 05/10/2022 10:50 AM PERCH MENDER Temperature 36.8 C (98.2 F) 03/01/2022 5:00 PM CDT Respiratory Rate 18 03/01/2022 6:30 PM CDT Oxygen Saturation 97% 05/10/2022 10:50 AM PERCH MENDER Inhaled Oxygen Concentration - - Weight 106.6 kg (235 lb) 06/15/2023 8:08 AM PERCH MENDER Height 188 cm (6' 2 ) 06/15/2023 8:08 AM PERCH MENDER Body Mass Index 30.17 06/15/2023 8:08 AM PERCH MENDER Plan of Treatment Not on file Procedures [...] LAB BLOOD ORDERABLES F inal Result [facility] [address] [facility] Department [place] [address] from Last 3 Months or Most Recently Relevant to Health Maintenance Insurance AETNA [facility] [place] Care Teams Radio Director Relationship Specialty Start Date End Date Zoran Menard MD PCP - General Family Medicine 05/10/23
--- OUTSIDE RECORDS SUMMARY | 2024-09-17 15:59 | XMS_ITS | Encounter Summary ---
Author Organization [facility] Address [facility] [place] [address] Care Team Providers Care Zmt Operator Name Role Phone None, Provider Primary Care Provider Sammi Porter MD Primary Care Provider [phone] None, Provider Primary Care Provider Laverne White NP Primary Care Provider [phone] Encounter Details Date Type Department Care Team (Late st Contact Info) Description 10/28/2018 [facility] [address] [place] [address] Md, Generic Conversion, Social History Tobacco Use Types Packs/Day Years [...] Orientation Straight 11/29/2019 10 :57 PM CDT documented as of this encounter Plan of Treatment Not on file documented as of this encounter Visit Diagnoses Not on filedocumented in this encounter Additional Health Concerns Infection Onset Date Last Indicated Resolved Time COVID-19 Rule Out 12/04/2019 12/04/2019 12/06/2019 6:09 PM CDT COVID-19 Rule Out 05/26/2020 05/26/2020 05/28/2020 6:46 PM CUSTOMER SUPPORT ADVISOR COVID-19 Rule Out 02/14/2021 02/14/2021 06/11/2021 2:35 PM CUSTOMER SUPPORT ADVISOR COVID-19 Rule Out 02/15/2021 02/15/2021 02/15/2021 11:57 AM CDT documented as of this encounter Care Teams Zmt Operator Relationship Specialty Start Date End Date None, Provider, PCP - General 05/06/18 02/09/21 Sammi Lake MD PCP - General FAMILY PRACTICE 02/10/21 11/02/22 None, Provider, PCP - General UNKNOWN PHYSICIAN SPECIALTY 11/03/22 [address] [place] [address] [facility] [address] [place] [address] PCP - General Nurse Practitioner Family 03/01/24 documented as of this encounter
--- OUTSIDE RECORDS SUMMARY | 2024-09-17 16:00 | XMS_ITS | Clinical Summary ---
Author Organization [facility] Address [address] [place] [address] Care Team Providers Care Theater Teacher Name Role Phone Laverne Melissa Sergio JAY Primary Care Provider [phone] Allergies Active Allergy Reactions Criticality Noted Date Comments Amoxicillin Hives,Unknown 09/12/2017 Codeine Unknown 03/09/2012 Penicillins Hives 09/12/2017 Medications glipiZIDE XL 10 MG 24 hr tabletIndications:T ype 2 diabetes mellitus without complication, with long-term current use of insulin ([facility] HHS/HCC) Take 1 tablet (10 mg total) by mouth daily with breakfast. Do not break or crush tablet 90 tablet 3 4 Active amLODIPine (NORVASC) 10 MG tabletIndications:E ssential hypertension Take 1 tablet (10 mg total) by mouth nightly at bedtime. 90 tablet 3 4 Active lisinopril (PRINIVIL) 10 MG tabletIndications:E ssential hypertension Take 1 tablet (10 mg total) by mouth every morning. 90 tablet 3 4 Active metoprolol tartrate (LOPRESSOR) 50 MG tabletIndications:T ype 2 diabetes mellitus without complication, with long-term current use of insulin ([facility] HHS/HCC),Essential hypertension Take 1 tablet (50 mg total) by mouth 2 (two) times daily. 180 tablet 3 4 Active atorvastatin (LIPITOR) 40 MG tabletIndications:T ype 2 diabetes mellitus without complication, with long-term current use of insulin ([facility] H[facility]/HCC),Mixed hyperlipidemia Take 1 tablet (40 mg total) by mouth nightly at bedtime. 90 tablet 3 4 Active empagliflozin (JARDIANCE) 25 MG tabletIndications:T ype 2 diabetes mellitus without complication, with long-term current use of insulin ([facility]) Take 1 tablet (25 mg total) by mouth daily. 90 tablet 3 4 Active mirtazapine (REMERON) 15 MG tabletIndications:A nxiety with depression,Primary insomnia Take 1 tablet (15 mg total) by mouth nightly at bedtime. 90 tablet 1 4 Active pregabalin (LYRICA) 75 MG capsuleIndications: Neuropathy Take 1 capsule (75 mg total) by mouth 2 (two) times daily. 180 capsule 1 4 Active sertraline (ZOLOFT) 50 MG tabletIndications:A nxiety with depression Take 1 tablet (50 mg total) by mouth daily. 90 tablet 3 4 Active tirzepatide (MOUNJARO) 2.5 MG/0.5ML injectionIndication s:Diabetes Mellitus Inject 2.5 mg into the skin every 7 days. Indications: Diabetes 2 mL 4 Active insulin glargine (LANTUS SOLOSTAR) 100 UNIT/ML injection (PEN)Indications:Un controlled type 2 diabetes mellitus with hyperglycemia ([facility]) Inject 40 Units into the skin nightly at bedtime. 36 mL 1 4 Active Active Problems Problem Noted Date Diagnosed Date Mixed hyperlipidemia 04/12/2024 Neuropathy 04/12/2024 Primary insomnia 04/12/2024 Diabetes mellitus ([facility]) 06/07/2023 Essential hypertension 06/07/2023 Dyslipidemia 02/12/2022 Overview (04/12/2024): Added automatically from request for surgery [id number] Coronary artery disease of n ative artery of [place] heart with stable angina pectoris 02/12/2022 Overview (04/12/2024): Added automatically from request for surgery [id number] Smoking 02/12/2022 Overview (04/12/2024): Added automatically from request for surgery [id number] Hypertriglyceridemia 04/30/2021 Overview (04/12/2024): Added automatically from request for surgery [id number] Hemangioma of liver 03/29/2021 Overview (04/12/2024): MRI 03/27/21: Benign cavernous hemangiomas of liver x 2 1.3 x 0.9 cm 1.3 x 1.1 cm Polyp of colon 03/10/2021 Overview (04/12/2024): Benign pathology 03/10/21. Repeat recommended Feb 2024. Pancreatitis ([facility]) 11/29/2019 Diabetic neuropathy ([facility]) 01/08/2015 Cervical disc disorder 03/09/2012 Anxiety with depression 03/09/2012 Immunizations Immunization Administration Dates Next Due Influenza Adult (Generic) 02/14/2023 Pneumococcal (Pneumovax 23) 08/27/2015 Pneumococcal (Prevnar 20) 02/14/2023 Tdap (Generic) 08/08/2023,12/28/2021 Family History Medical History Relation Comments Alzheimers Father Diabetes Father Heart Disease Father Hypertension Father Lung Disease Father Diabetes Mother Hypertension Mother Relation Status Comments Father Mother Alive Social History Tobacco Use Types Packs/Day Years Used Date Smoking Tobacco: Every Day Cigarettes Smokeless Tobacco: Never Tobacco Cessation:Ready to Q uit: No; Counseling Given: Yes Alcohol Use Standard Drinks/Week Comments Yes 0 (1 standard drink = 0.6 oz pur e alcohol) occasionally Overall Financial Resource Strain (CARDIA) Answe r Date Recorded Difficulty of Paying Living Expenses Not hard at all 11/29/2019 PHQ-2 Answer Date Recorded Patient Health Questionnaire-2 Score 0 04/03/2024 [facility] [place] of Occupat ional Health - Occupational Stress [...] Orientation Straight 11/29/2019 10 :57 PM CDT Last Filed Vital Signs Vital Sign Reading Time Taken Comments Blood Pressure 108/68 05/21/2024 8:25 AM NOUGAT CUTTER MACHINE Pulse 74 05/21/2024 8:25 AM NOUGAT CUTTER MACHINE Temperature 36.6 C (97.8 F) 05/21/2024 8:25 AM NOUGAT CUTTER MACHINE Respiratory Rate 20 05/21/2024 8:25 AM NOUGAT CUTTER MACHINE Oxygen Saturation 98% 05/21/2024 8:25 AM NOUGAT CUTTER MACHINE Inhaled Oxygen Concentration - - Weight 108.3 kg (238 lb 12.8 oz) 05/21/2024 8:25 AM NOUGAT CUTTER MACHINE Height 188 cm (6' 2 ) 05/21/2024 8:25 AM NOUGAT CUTTER MACHINE Body Mass Index 30.66 05/21/2024 8:25 AM NOUGAT CUTTER MACHINE Plan of Treatment Health Maintenance Due Date Last Done Comments Colorectal Cancer Screening Colonoscopy (10 Years) 1972 Kidney Health Evaluation 1972 Annual Physical 1975 Diabetes: Retinopathy Eye Exam 1990 Hepatitis C 1990 Hepatitis B Vaccines (1 of 3 - 19+ 3-dose series) 1991 Zoster Vaccines (1 of 2) 2022 PHQ-2 (Physician Butler) 05/23/2024 04/03/2024 Hemoglobin A1C 07/04/2024 04/03/2024, 01/21, 12/01/2019 Lipid Panel 05/10/2025 05/10/2024, 04/22, 12/02/2019, Additional history exists COVID-19 Vaccine ( season) 2025 Postponed from 01/22/2024 (Patient Refused) DTaP, Tdap and Td Vaccines (3 - Td or Tdap) 08/07/2033 08/08/2023, 12/28/2021 Pneumococcal Vaccine: 50+ Years Completed 02/14/2023, 08/27/2015 Meningococcal B Vaccine Aged Out No l onger eligible based on patient's age to complete this topic Meningococcal Vaccine Aged Out No sarah beth aniceto eligible based on patient's age to complete this topic RSV Immunizations Under 20 Months Aged Out No longer eligible based on patient's age to complete this topic Goals Goal Patient Goal Type Associated Problems Recent Progress Patient-Stated? Author Return to independent living Lifestyle Noemi Parson, PHOSPHATIC FERTILIZER SUPERVISOR Procedures Procedure Name Priority Date/Time Associated Diagnosis Comments LIPID PANEL Routine 05/10/2024 7:31 AM NOUGAT CUTTER MACHINE Mixed hyperlipidemia HEMOGLOBIN, GLYCOSYLATED Routine 04/03/2024 Type 2 diabetes mellitus without complication, with long-term current use of insulin ([facility]) from Last 3 Months or Most Recently Relevant to Health Maintenance Results * (ABNORMAL) LIPID PANEL (05/10/2024 7:31 AM NOUGAT CUTTER MACHINE) CHOLESTEROL 226(H) <200.0 MG/DL 05/10/2024 3:36 PM [facility] TRIGLYCERIDES 772(H) <150 MG/DL 05/10/2024 3:36 PM [facility] Comment:REFLEXED DIRECT LDL DUE TO TRIG >400. HDL 32(L) >40.0 MG/DL 05/10/2024 3:36 PM [facility] LDL (CALCULATED) NOT CALCULATED <100 MG/DL 05/10/2024 3:36 PM [facility] Comment:TRIGLYCERIDE >400 IN VALIDATES FRACTIONATION. NON HDL CHOLESTEROL 194(H) <130 MG/DL 05/10/2024 3:36 PM [facility] CHOL/HDL RATIO 7.1(H) 0.0 - 4.5 05/10/2024 3:36 PM [facility] VLDL CALCULATION NOT CALCULATED 5 - 55 MG/DL 05/10/2024 3:36 PM [facility] Comment:TRIGLYCERIDE >400 IN VALIDATES FRACTIONATION. LIPID INTERPRETATION 05/10/2024 3:36 PM [facility] Comment: NIH CONCENSUS REPORT RECOMMENDATIONS: ADULT CHILD LOW RISK: CHOLESTEROL <200 <170 TRIGLYCERIDE <150 --- HDL >=60 --- LDL <100 <110 BORDERLINE: CHOLESTEROL 200-239 170-199 TRIGLYCERIDE 150-199 --- HDL 40-59 --- LDL 100-159 110-129 HIGH RISK: CHOLESTEROL >=240 >=200 TRIGLYCERIDE >=200 --- HDL <40 --- LDL >=160 >=130 05/10/2024 7:31 AM NOUGAT CUTTER MACHINE Laverne Melissa NP LABORATORY Final Result Performing Organization Address City/State/[facility] Co de Phone Number [facility] [address] [place] [address], [place] [phone] * HEMOGLOBIN, GLYCOSYLATED (04/03/2024) HGB A1C 12.8 % [id number] Alondra COLLAZO [facility] 04/03/2024 Laverne Melissa NP LABORATORY Final Result Performing Organization Address [facility] de Phone Number [phone] [facility] [address] [place] [address], [place] [phone] from Last 3 Months or Most Recently Relevant to Health Maintenance Insurance [employer] Advance Directives Documents on File Type Date Recorded Patient Vending Machine Servicer Expl anation Advance Directives and Living Will 02/17/2021 12:00 AM ADVANCED DIRECTIVES Advance Directives and Living Will 02/04/2021 12:00 AM ADVANCED DIRECTIVES Care Teams Theater Teacher Relationship Specialty Start Date End Date Laverne Melissa, PIERRE [address] [place] [address] PCP - General Nurse Practitioner Family 03/01/24
--- OUTSIDE RECORDS SUMMARY | 2024-09-17 16:00 | XMS_ITS | Continuity of Care Document ---
Author Organization [facility] Address [address] [place] [address] Phone Care Team Providers Care Rand Maker Name Role Phone Richard Gracia MD Unavailable [...] Providers Copied on Encounter [facility], [address], [place], [address], [place] tel:[phone] [facility] No Information Jul-0 8-201 7 Julius Ramos. [address] [place], [place], [id number] . tel: [phone] [facility], [address] [address], [place], [address], [place] tel:[phone] [facility] No Information 6-201 7 [address] [place], [place], [place], [id number] . tel: [phone] OFFICE/OUTPAT IENT VISIT EST [facility], [address] [address], [place], [address], [place] tel:[phone] [facility] Primary osteoarthritis of right hip Sep-2 9-201 6 [address] [place] , [place], [place], [id number] . tel: [phone] OFFICE/OUTPAT IENT VISIT EST [facility], [address], [address], [place] tel:[phone] [facility] Primary osteoarthritis of right hip Sep-0 2-201 6 [address] [place] , [place], [place], [id number] . tel: [phone] OFFICE/OUTPAT IENT VISIT EST [facility], [address] [address], [place], [address], [place] tel:[phone] [facility] Primary osteoarthritis of right hip Aug-0 5-201 6 [address] [place] , [place], [place], [id number] . tel: [phone] OFFICE/OUTPAT IENT VISIT EST [facility], [address] [address], [place], [address], [place] tel:[phone] [facility] The injection helped for three days (chief complaint) Body mass index (BMI) 31.0-31.9, adultPersonal history of nicotine dependencePrimar y osteoarthritis of right hip [address] , [place], [place], [id number] . tel: [phone] OFFICE/OUTPAT IENT VISIT EST [facility], [address] [facility] [address] [facility] [address], [place], [address], [place] tel:[phone] [facility] Right hip pain (chief complaint) Primary osteoarthritis of right hip 6 Mel[address] Millan. [address] [facility] [address] [place], [place], [id number] . tel: [phone] Referring Provider: Levi Lopez, [address] [facility], [place], [address]. tel:[phone] OFFICE CONSULTATION [facility], [address], [place], [address], [place] tel:[phone] [facility] My back and right leg hurt alot (chief complaint) Body mass index (BMI) 31.0-31.9, adultPersonal history of nicotine dependenceLow back painPrimary osteoarthritis of right hip 6 [address]. [address] [place], [place], [id number] . tel: [phone] Family History Family Member Type Diagnosis Age At Onset Mother Problem (finding) Maternal history of regina betes mellitus Father Problem (finding) Maternal history of regina betes mellitus Mother Problem (finding) hypertension Father Problem (finding) hypertension Payers Payer name Insurance type Covered green party ID Authoriza tion(s) No Information Social History [...]
--- OUTSIDE RECORDS SUMMARY | 2024-09-17 16:00 | XMS_ITS | Clinical Summary ---
Author Organization [facility] Address [address] [place] [place] [address] Care Team Providers Care Busher Helper Name Role Phone Sammi Lake MD Primary Care Provider [phone] Source Comments [facility],non-owned Affiliates and Associated Physician Practices is amultiple site organization consisting of ambulatory clinics and hospital sitesin [place] and [place]. This disclosure is being madepursuant to the Care Everywhere program and may not contain all information available regarding this patient. 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 Gender Identity Not on file Sexual Orientation [...] 7 - 26 mg/dL 12/28/2021 1:17 AM [facility] Creatinine 1.01 0.71 - 1.16 mg/dL 12/28/2021 1:17 AM [facility] Sodium 137 136 - 145 mmol/L 12/28/2021 1:17 AM [facility] Potassium 3.6 3.5 - 4.5 mmol/L 12/28/2021 1:17 AM [facility] Chloride 105 98 - 107 mmol/L 12/28/2021 1:17 AM [facility] CO2 17(L) 22 - 29 mmol/L 12/28/2021 1:17 AM [facility] Glucose 169(H) 70 - 115 mg/dL 12/28/2021 1:17 AM [facility] Calcium 9.0 8.4 - 10.2 mg/dL 12/28/2021 1:17 AM [facility] Anion Gap 19(H) 8 - 18 12/28/2021 1:17 AM [facility] BUN/Creatinine Ratio 16 7 - 23 12/28/2021 1:17 AM [facility] Osmolality Calculated 289 270 - 300 mOsm/kg 12/28/2021 1:17 AM [facility] eGFR by CKD-EPI >90 >=90 mL/min/1.7 3 m2 12/28/2021 1:17 AM [facility] Blood BLOOD SPECIMEN / Unknown Venipuncture / Unknown 12/28/2021 12:39 AM CDT 12/28/2021 12:51 AM CDT us Angelito Maddox MD LAB - CHEMISTRY ORDERABLES Final Result [facility] [address] [place] [address], [facility] [phone] * (ABNORMAL) HEMOGLOBIN A1C (12/26/2017 3:18 AM CDT) Hemoglobin A1c 7.4(H) 4.2 - 6.3 % 12/26/2017 5:16 AM CDT [facility] Estimated Average Glucose 166 mg/dL 12/26/2017 5:16 AM CDT [facility] Whole Blood BLOOD SPECIMEN WITH EDTA / Unknown Lab Venipuncture / Unknown 12/26/2017 3:18 AM CDT 12/26/2017 4:38 AM CDT Aguilar Bernardo APRN[facility] LAB - CHEMISTRY ORDERABLES Final Result [facility] [address] [place] [address] from Last 3 Months or Most Recently Relevant to Health Maintenance Insurance MEDICAID [employer] [facility] [place] MED[place]ID [employer]NA [facility] [place] TP THIRD CONSTITUTION PARTY LIABILITY * Guarantor: E-SCREEN,SOIL Account Type Relation to Patient Date of Phone Billing Address Company Employer [employer] [address] Advance Directives * Full Code (Latest Code Status on File) Date Activated Date Inactivated Comments 12/25/2017 7:52 PM 12/29/2017 3:21 PM Care Teams Busher Helper Relationship Specialty Start Date End Date Sammi Lake MD [address] [id number] PCP - General Family Medicine 12/28/21
[2024-09-17 16:05] LABS: Alanine Aminotransferase 24 U/L (6-50); Albumin Level 3.6 g/dL (3.5-5.1); Alkaline Phosphatase 75 U/L (38-126); Anion Gap 10 mmol/L (4-12); Aspartate Amino Transferase 25 U/L (17-59); Bilirubin,Total 0.8 mg/dL (0.2-1.3); Blood Urea Nitrogen 14 mg/dL (9-20); Calcium 8.4 mg/dL (8.4-10.2); Carbon Dioxide 22 mmol/L (22-30); Chloride 102 mmol/L (98-107); Estimated CRCL calculation 124 ml/min; Estimated Glomerular Filt Rate > 60; Glucose 187 mg/dL (65-110); Potassium 4.1 mmol/L (3.4-5.0); Sodium 134 mmol/L (137-145)
[2024-09-17 16:17] LABS: Lipase 86 U/L (23-300)
--- NOTE | 2024-09-17 16:21 | PC.NURSE ---
With pt. permission, pt. updated over the phone by this RN.
[2024-09-17 16:28] LABS: Troponin I 0.014 ng/mL (0.000-0.034)
--- NOTE | 2024-09-17 17:35 | PC.NURSE ---
Pt. updated via phone. All questions answered at this time.
--- NOTE | 2024-09-17 18:32 | ECG_ITS ---
Test Date: 2024-09-17 18:36:10 Measurements Intervals [place] Rate: 96 P: 68 RI: 179 QRS: -6 QRSD: 106 T: 65 QT: 365 QTc: 463 Interpretive Statements SINUS RHYTHM ANTEROSEPTAL INFARCT, AGE INDETERMINATE ABNORMAL ECG Compared to ECG 09/17/2024 11:49:21 NO SIGNIFICANT CHANGE Electronically Signed On 09-18-2024 08:04:53 CDT by Connor Valenzuela D.O.
[2024-09-17 19:05] LABS: Troponin I 0.015 ng/mL (0.000-0.034)
--- NOTE | 2024-09-17 19:32 | PC.NURSE ---
Dr. Vargas at bedside updating pt.
[2024-09-17 19:33] LABS: Glucose Point of Care 114 mg/dl (65-105)
[2024-09-17] MEDS: METOPROLOL TARTRATE 50 MG TAB PO (19:40)
== END 2024-09-17 19:51 | disposition home or self-care (01) ==
PROVIDERS: Emergency Medicine; Emergency Provider Emergency Medicine
DX: R07.9 Chest pain, unspecified (principal); E11.65 Type 2 diabetes mellitus with hyperglycemia; Z20.822 Contact with and (suspected) exposure to COVID-19; F17.200 Nicotine dependence, unspecified, uncomplicated; K57.90 Diverticulosis of intestine, part unspecified, without perforation or abscess without bleeding; K76.0 Fatty (change of) liver, not elsewhere classified; K40.90 Unilateral inguinal hernia, without obstruction or gangrene, not specified as recurrent; Z79.4 Long term (current) use of insulin; R00.0 Tachycardia, unspecified; R94.31 Abnormal electrocardiogram [ECG] [EKG]
CPT/HCPCS: 36415; 36600; 71046; 71275; 74174; 80053; 81001; 82375; 82805; 82948; 83050; 83690; 84484; 85018; 85025; 85610; 85730; 87637; 93005; 94640; 96361; 96374; 99284; A9270; J2405; J7120; Q9967